=== PATIENT | male | born 1980 | race Caucasian/White ===

== ENCOUNTER 2023-02-07 09:55 | Emergency (ER) | payer MEDICAID, OTHER ==
[~2023-02-07] VITALS: Ht 165.1 cm; Wt 69.0 kg
[2023-02-07 10:12] VITALS: BP 153/90; PULSE 94; RESP 18; TEMP 98; O2SAT 100
[2023-02-07 11:33] LABS: BASOPHILS % 0.6 % (0.0-2.0); EOSINOPHILS % 0.2 % (0.0-5.0); HEMATOCRIT. 46.5 % (42.0-52.0); LYMPHOCYTES % 17.4 % (20.0-50.0); MEAN CORPUSCULAR HEMOGLOBIN 29.3 pg (28.0-32.0); MEAN PLATELET VOLUME 7.2 fl (7.4-10.4); MONOCYTES % 3.5 % (2.0-8.0); NEUTROPHILS % 78.3 % (40.0-76.0); PLATELET 300 x1000/uL (130-400); RED BLOOD CELL COUNT 5.47 mill/uL (4.7-6.1); RED CELL DISTRIBUTION WIDTH 12.9 % (11.6-14.6)
[2023-02-07 11:47] LABS: CHLORIDE 109 mEq/L (98-107)
[2023-02-07 12:03] LABS: T4 FREE 1.18 ng/dL (0.76-1.46)
== END 2023-02-07 12:48 | disposition home or self-care (01) ==
LOC: ER 10:31 → EDBD 10:31 → ER 12:48
DX: F41.9 Anxiety disorder, unspecified (principal)
CPT/HCPCS: 36415; 71045; 80053; 83735; 84439; 84443; 84484; 85025; 93005; 99285